=== PATIENT | male | born 1955 | race Caucasian/White ===

== ENCOUNTER 2019-01-30 08:02 | Day surgery (SDC) | payer OTHER ==
[~2019-01-30 08:02] MED LIST: CEFAZOLIN 2 GM/50 ML (PMX) 50 ML IVPB
[2019-01-30] MEDS: SOD CHLORIDE 0.9% 1,000 ML IV (08:42)
[2019-01-30] MEDS ORDERED: ONDANSETRON 4 MG INJ IV (09:30)
[2019-01-30] MEDS ORDERED: MEPERIDINE 25 MG INJ IV (09:30)
[2019-01-30] MEDS ORDERED: HYDROmorphONE 1 MG/5 ML IV SYRINGE IV ×2 (09:30)
[2019-01-30] MEDS ORDERED: LABETALOL HCL 20MG INJ IV (09:30)
[2019-01-30] MEDS ORDERED: PROCHLORPERAZINE 10 MG INJ IV (09:30)
[2019-01-30] MEDS ORDERED: DIPHENHYDRAMINE 50 MG INJ IV (09:30)
[2019-01-30] MEDS ORDERED: hydrALAzine 20 MG INJ IV (09:30)
[2019-01-30] MEDS ORDERED: BUPIVACAINE 0.25% (MPF) 30 ML INJ (09:31)
[2019-01-30] MEDS ORDERED: MIDAZOLAM 1 MG/ML 2 ML INJ (09:37)
[2019-01-30] MEDS ORDERED: PROVENTIL HFA 6.7GM INHALER (09:38)
[2019-01-30] MEDS ORDERED: PROPOFOL 20 ML ×2 (09:58→10:15)
[2019-01-30] MEDS ORDERED: DEXAMETHASONE 4 MG/ML 5 ML INJ (09:58)
[2019-01-30] MEDS ORDERED: FAMOTIDINE 20 MG INJ (09:58)
[2019-01-30] MEDS ORDERED: ONDANSETRON 4 MG INJ (09:58)
[2019-01-30] MEDS ORDERED: LIDOCAINE 2% (SDV) 5 ML INJ (09:58)
[2019-01-30] MEDS ORDERED: EPHEDrine 25 MG/5 ML SYG (10:01)
[2019-01-30] MEDS ORDERED: CEFAZOLIN 1 GM INJ (10:01)
[2019-01-30] MEDS ORDERED: FENTAnyl 50 MCG/ML VIAL (10:07)
[2019-01-30] MEDS: BUPIVACAINE 0.5% (SDV) 30 ML INJ (10:12)
[2019-01-30] MEDS: LIDOCAINE 2% (MDV) 20 ML INJ (10:12)
[2019-01-30] MEDS: HYDROCODONE/APAP (5/325) TAB PO (12:22)
[2019-01-30] MEDS: FENTAnyl 50 MCG/ML VIAL IV ×3 (12:23→12:39)
[2019-01-30] MEDS ORDERED: OXYCODONE/ACETAMINOPHEN (5/325) TAB (12:34)
[2019-01-30] MEDS: HYDROmorphONE 1 MG/5 ML IV SYRINGE IV (12:35)
[2019-01-30] MEDS: OXYCODONE/ACETAMINOPHEN (5/325) TAB PO (12:38)
[2019-01-30] MEDS ORDERED: HYDROmorphONE 1 MG/ML SYG IV ×3 (14:00)
== END 2019-01-30 14:22 | disposition home or self-care (01) ==
LOC: SDS 08:02
DX: D21.3 Benign neoplasm of connective and other soft tissue of thorax (principal); I10 Essential (primary) hypertension; E66.9 Obesity, unspecified; E78.5 Hyperlipidemia, unspecified
CPT/HCPCS: 14041; 88307